=== PATIENT | male | born 1955 | race Hispanic/Latino ===

== ENCOUNTER 2019-08-31 07:06 | Day surgery (SDC) | payer OTHER ==
--- NOTE | 2019-08-27 16:25 | RAD REPORT ---
EXAM DESCRIPTION: RAD - Chest Pa And Lat (2 Views) - 08/27/2019 4:18 pm CLINICAL HISTORY: preop Chest pain. COMPARISON: No comparisons FINDINGS: The lungs are clear. The heart is normal in size. No displaced fractures. IMPRESSION: No acute or concerning finding suspected.
[2019-08-27 16:36] LABS: Absolute Lymphocytes (CBC) 1.8 K/uL (0.7-4.9); Basophils % 0.8 % (0-1.3); Hematocrit 45.8 % (39.6-49.0); MPV 8.7 fL (7.6-11.3); RBC Red Blood Cell Count 5.02 M/uL (4.33-5.43)
--- NOTE | 2019-08-28 08:36 | EKG ---
Test Date: 2019-08-27 Test Time: 15:49:52 [employer]: [place] MEASUREMENT RESULTS: Intervals: Rate: 50 MI: 162 QRSD: 102 QT: 434 QTc: 395 [place]: P: 49 MI: 162 QRS: 47 T: 38 INTERPRETIVE STATEMENTS: Sinus bradycardia Otherwise normal ECG No previous ECG available for comparison Electronically Signed On 08-28-19 08:34:57 HEALTHCARE CONSULTANT by Ponce Rangel
[2019-08-31] MEDS ORDERED: CEFAZOLIN/SWI 1gm 1 GM/10 ML SYR ONE (07:24)
[2019-08-31] MEDS ORDERED: Ringers Lactate 1,000 ML IV ONE (07:24)
[2019-08-31] MEDS ORDERED: BUPIVACAINE 0.5% PF 10 ML VIAL ONE (08:19)
[2019-08-31] MEDS ORDERED: propofoL 200 MG/20 ML VIAL IV ONE (08:21)
[2019-08-31] MEDS ORDERED: GLYCOPYRROLATE 0.2 MG/ML SYR ONE ×2 (08:22)
[2019-08-31] MEDS ORDERED: LIDOCAINE 2% MPF 5 ML VIAL ONE (08:22)
[2019-08-31] MEDS ORDERED: FENTANYL CITR 250 MCG/5 ML ONE (08:23)
[2019-08-31] MEDS ORDERED: ONDANSETRON 4 MG/2 ML VIAL ONE (08:24)
[2019-08-31] MEDS ORDERED: NEOSTIGMINE 1 MG/ML -5 ML ONE (08:25)
[2019-08-31] MEDS ORDERED: ROCURONIUM 50 MG/5 ML VIAL IV ONE (08:25)
[2019-08-31] MEDS ORDERED: MIDAZOLAM HCL 2 MG/2 ML INJ ONE (08:54)
[2019-08-31] MEDS ORDERED: EPHEDRINE SULF 50 MG/ML VIAL ONE (09:16)
--- NOTE | 2019-08-31 09:40 | P.BOP ---
Preoperative diagnosis: incarcerated tender umbilical hernia Postoperative diagnosis: same Primary procedure: Open repair of incarcerated tender umbilical hernia Glass Handler: Maryam Benavides) Estimated blood loss: <10cc Specimen: hernia sac Findings: incarcerated omentum Anesthesia: General Complications: None Transferred to: Recovery Room Condition: Good
[2019-08-31 10:27] VITALS: BP 135/89; TEMP 97.2; O2SAT 98
[2019-08-31] MEDS ORDERED: CODEINE 30MG/APAP 300MG TAB ONE (10:47)
--- NOTE | 2019-08-31 21:11 | OP ---
Date of Procedure: 08/31/2019 Surgeon: Oseas Alfaro MD Pantograph Machine Operator: LUCIO Walker. Preoperative Diagnosis: Incarcerated tender umbilical hernia. Postoperative Diagnosis: Incarcerated tender umbilical hernia. Procedure Performed: Open repair of an incarcerated tender umbilical hernia. Estimated Blood Loss: Less than 10 mL. Specimen: Incarcerated omentum. Anesthesia: General plus local. Indications: This is the case of a 64-year-old patient, who comes to us with a tender umbilical melody ia with incarceration. Benefits, alternatives, and risks of repair fully explained, which include, b ut are not limited to infection, bleeding, damage to adjacent structures, anesthesia complications, r ecurrence, [place], and even . He also understands this may not relieve any symptoms, he might need more than one surgical intervention. He understood, signed a consent. Description Of Procedure: Patient was brought to the operating room, placed in supine position. Ane sthesia was done without complication. A time-out was called. Abdomen was prepped and draped in a s terile fashion. Local anesthesia was applied followed by a curvilinear incision in the infraumbilica l region. Incision was carried down to fascia. We noticed a hernia sac. We the skin from a hernia sac, opened the hernia sac, noticed incarcerated omentum. Cannot be reduced completely, so we the area, put Thalia clamps making sure there are no intestines on it and suture ligated that with 3-0 chromic. After fully inspecting, making sure there was no bleeding, then we reduced b ack into the abdominal cavity. Hernia sac was removed. The fascial edges were cleaned and then we p roceeded to close the area with #1 Vicryl in a [id number] fashion multiple times. The area was irrigated. Subcu tissue closed with 3-0 chromic and the skin in subcuticular fashion with 3-0 chromi c and Steri-Strips on top. Sponge count and instrument counts were correct. Patient tolerated the p rocedure well. Patient was sent to the recovery room in stable condition. BERYL/CORNELL Voice ID: [id number] Report ID: [id number]
--- NOTE | 2019-08-31 21:11 | DS ---
Date of Discharge: 08/31/2019 Diagnosis: Incarcerated tender umbilical hernia. Procedures: Open repair of an incarcerated tender umbilical hernia. Disposition: Home. Activity: As tolerated. No heavy lifting. Followup: Follow up in my office in 1 week. Call for appointment [phone]. Keep area dry for 48 ho urs, then may shower. Keep Steri-Strips intact. Medications: Include Tylenol No. 3 q.4 hours p.r.n. pain. BERYL/CORNELL Voice ID: [id number] Report ID: [id number]
== END 2019-08-31 11:04 | disposition home or self-care (01) ==
LOC: OR 07:06
PROVIDERS: ATTEND Surgery
PROC: 0WQF0ZZ Repair Abdominal Wall, Open Approach (ICD-10-PCS; principal; 2019-08-31 09:00)
DX: K42.0 Umbilical hernia with obstruction, without gangrene (principal); I10 Essential (primary) hypertension; Z80.1 Family history of malignant neoplasm of trachea, bronchus and lung; Z80.51 Family history of malignant neoplasm of kidney; Z82.49 Family history of ischemic heart disease and other diseases of the circulatory system
CPT/HCPCS: 93005; 85025; 80048; 36415; 88302; 71046; 49587; J2704; J2250; J3010; J2710; J0690; J7120; J2405